=== PATIENT | male | born 2000 | race Hispanic/Latino ===

== ENCOUNTER 2023-05-17 20:42 | Emergency (ER) | payer BC, SELFPAY ==
--- NOTE | ~2023-05-17 | XR_ITS ---
EXAMINATION: XR chest 1V portable Exam Date/Time: 05/17/2023 21:10 CDT HISTORY: Syncope AT WORK THIS EVENING Comparison: None. RESULT: Lines, tubes, and devices: None. Lungs and pleura: Streaky bibasilar opacities, greater in the left lung base, otherwise clear. Cardiomediastinal silhouette: Normal. Other: No acute osseous or upper abdominal finding. IMPRESSION: Streaky bibasilar atelectasis. Aspiration, particularly in the left lower lobe, could also be conside red, depending on the clinical context. Reviewed, dictated and finalized at location K. IMPRESSION: Streaky bibasilar atelectasis. Aspiration, particularly in the left lower lobe, could also be considered, depending on the clinical context.
[2023-05-17 20:42] VITALS: BP 119/84; PULSE 95; RESP 14; TEMP 36.8; O2SAT 100
--- NOTE | 2023-05-17 20:57 | ECG_ITS ---
Measurements Intervals [place] Rate: 88 P: 51 PA: 140 QRS: 42 QRSD: 91 T: 33 QT: 323 QTc: 392 Interpretive Statements SINUS RHYTHM WITH SINUS ARRHYTHMIA POSSIBLE RIGHT VENTRICULAR CONDUCTION DELAY [RSR (QR) IN V1/V2] BORDERLINE ECG NO PREVIOUS ECG AVAILABLE FOR COMPARISON Electronically Signed On 05-18-2023 9:16:28 CDT by Joseph Joseph M.D.
[2023-05-17] MEDS: SODIUM CHLORIDE 0.9% IV 1,000 ML 999 ML IV CONT (21:42)
[2023-05-17 21:54] LABS: Basophils Absolute Auto 0.1 K/mm3 (0.0-0.1); Basophils Percent Auto 0.4 % (0.2-1.2); Eosinophils Absolute Auto 0.1 K/mm3 (0-0.3); Eosinophils Percent Auto 0.7 % (0-4.4); Hematocrit 46.6 % (42.0-52.0); Hemoglobin 15.9 g/dL (14.0-18.0); Immature Granulocyte Absolute 0.06 K/mm3 (0.00-0.031); Immature Granulocyte Percent A 0.4 % (0-0.5); Lymphocytes Absolute Auto 2.77 K/mm3 (0.9-3.2); Lymphocytes Percent Auto 20.6 % (18.3-44.2); Mean Corpuscular HGB Conc 34.1 g/dl (32-36); Mean Corpuscular Hemoglobin 31.2 pg (26-34); Mean Corpuscular Volume 91.6 fl (80-100); Mean Platelet Volume 10.7 fl (7.4-10.4); Monocytes Absolute Auto 1.2 K/mm3 (0.1-0.6); Monocytes Percent Auto 9.1 % (2.6-8.5); Neutrophils Absolute Auto 9.3 K/mm3 (1.3-6.7); Neutrophils Percent Auto 68.8 % (45.5-73.1); Platelet Count Result 221 k/mm3 (150-375); Red Blood Count 5.09 M/mm3 (4.6-6.20); White Blood Count 13.5 K/mm3 (4.5-10.0)
[2023-05-17 22:02] LABS: Lactic Acid Reflex 1.7 mmol/L (0.7-2.0)
[2023-05-17 22:08] LABS: Alanine Aminotransferase 34 U/L (6-50); Albumin Level 4.8 g/dL (3.5-5.1); Alkaline Phosphatase 92 U/L (38-126); Anion Gap 12 mmol/L (8-16); Aspartate Amino Transferase 37 U/L (17-59); Bilirubin,Total 0.6 mg/dL (0.2-1.3); Blood Urea Nitrogen 11 mg/dL (9-20); Calcium 9.3 mg/dL (8.4-10.2); Carbon Dioxide 24 mmol/L (22-30); Chloride 103 mmol/L (98-107); Estimated CRCL calculation 118 ml/min; Estimated Glomerular Filt Rate > 60; Glucose 94 mg/dL (65-110); Magnesium 2.4 mg/dL (1.6-2.3); Potassium 3.8 mmol/L (3.4-5.0); Sodium 139 mmol/L (137-145)
--- NOTE | 2023-05-17 22:11 | ED.GENADULT ---
HPI - General Adult General Chief complaint: Syncope Stated complaint: COLLAPSED AT WORK Time Seen by Provider: 05/17/23 20:50 History of Present Illness HPI narrative: Patient 23-year-old gentleman who presents the emergency department with chief complaint of syncopal episode. The patient reports that he has been sick for several days and today decided to go back to work he reports that they moved him to an area that is more physically active than normal and then was sitting down to eat lunch and started to feel lightheaded and then briefly passed out the patient reports that he was aware of everything going on but just did not feel strong enough to be able to interact with individuals. The patient reports currently he has no pain reports that he has had a little bit of a sore throat and just felt generally weak. Related Data Allergies Allergy/AdvReac Type Severity Reaction Status Date / Time No Known Allergies Allergy Verified 05/17/23 23:16 Review of Systems Review of Systems: A 10 system review of systems was completed on the patient and is negative except for what is stated in the HPI. Nursing and ancillary documentation was reviewed. Exam Narrative: GENERAL: Well-appearing, well-nourished, and in no acute distress. HEAD: Normocephalic, atraumatic. EYES: PERRLA and EOMI. ENT: Nares clear, no rhinorrhea or epistaxis. Mucous membranes moist. NECK: Supple. CHEST: Clear to auscultation. No respiratory distress. HEART: Regular rate and rhythm. No murmur heard. Normal peripheral pulses. ABDOMEN: Soft, nontender, nondistended, normal active bowel sounds. EXTREMITIES: Normal range of motion. No edema. SKIN: Warm, dry, no rash. NEURO: No focal deficits. Alert and oriented x3. PSYCH: Normal mood and affect. Course Vital Signs Vital signs: Vital Signs Temperature 36.8 C 05/17/23 20:42 Pulse Rate 95 05/17/23 20:42 Respiratory Rate 14 05/17/23 20:42 Blood Pressure 119/84 05/17/23 20:42 Pulse Oximetry 100 05/17/23 20:42 Temperature 36.8 C 05/17/23 20:42 Pulse Rate 90 05/17/23 23:13 Respiratory Rate 15 05/17/23 22:53 Blood Pressure 109/76 05/17/23 23:13 Pulse Oximetry 100 05/17/23 22:53 Medical Decision Making [facility] Narrative Medical decision making narrative: Differential diagnosis includes electrolyte abnormality, dehydration, viral syndrome Laboratory studies were obtained which were within normal limits CBC was within normal limits electrolytes are within normal his magnesium was 2.4 urinalysis showed no evidence of UTI the patient is negative for COVID flu and strep chest x-ray showed no focal infiltrate EKG showed no dysrhythmia Vital Signs Vital Signs: Vital Signs Temperature 36.8 C 05/17/23 20:42 Pulse Rate 95 05/17/23 20:42 Respiratory Rate 14 05/17/23 20:42 Blood Pressure 119/84 05/17/23 20:42 Pulse Oximetry 100 05/17/23 20:42 Temperature 36.8 C 05/17/23 20:42 Pulse Rate 90 05/17/23 23:13 Respiratory Rate 15 05/17/23 22:53 Blood Pressure 109/76 05/17/23 23:13 Pulse Oximetry 100 05/17/23 22:53 Lab Data 05/17/23 21:41 05/17/23 21:41 Labs: Lab Results 05/17/23 05/17/23 Range/Units 21:41 21:42 WBC 13.5 H (4.5-10.0) K/mm3 RBC 5.09 (4.6-6.20) M/mm3 Hgb 15.9 (14.0-18.0) g/dL Hct 46.6 (42.0-52.0) % MCV 91.6 (80-100) fl MCH 31.2 (26-34) pg MCHC 34.1 (32-36) g/dl RDW 13.0 (11.5-14.5) % Plt Count 221 (150-375) k/mm3 MPV 10.7 H (7.4-10.4) fl Immature Gran % (Auto) 0.4 (0-0.5) % Neut % (Auto) 68.8 (45.5-73.1) % Lymph % (Auto) 20.6 (18.3-44.2) % Eddy % (Auto) 9.1 H (2.6-8.5) % Eos % (Auto) 0.7 (0-4.4) % Baso % (Auto) 0.4 (0.2-1.2) % Lymph # (Auto) 2.77 (0.9-3.2) K/mm3 Eddy # (Auto) 1.2 H (0.1-0.6) K/mm3 Eos # (Auto) 0.1 (0-0.3) K/mm3 Baso # (Auto) 0.1 (0.0-0.1) K/mm3 Abs Immat Gran (auto) 0.06
[2023-05-17 22:20] LABS: Strep Group A RT-PCR NOT DETECTED (Negative)
[2023-05-17 22:31] LABS: Influenza A QL RT-PCR Negative (Negative); Influenza B QL RT-PCR Negative (Negative); SARS-CoV-2 RNA PCR Negative (Negative)
[2023-05-17 22:53] VITALS: BP 104/71; PULSE 86; RESP 15; O2SAT 100
[2023-05-17 23:10] VITALS: BP 105/60; PULSE 92
[2023-05-17 23:11] VITALS: BP 105/62; PULSE 87
[2023-05-17 23:13] VITALS: BP 109/76; PULSE 90
[2023-05-17 23:22] LABS: Appearance Urine Clear (Clear); Bilirubin Urine Negative (Negative); Blood Urine Negative (Negative); Color Urine Yellow (Yellow); Glucose Urine UA Negative (Negative); Ketones Urine Negative (Negative); Leukocyte Esterase Ur Negative LEU/UL (Negative); Nitrate Urine Negative (Negative); Protein Urine Negative (Negative); Specific Grav Ur 1.016 (1.001-1.035); Urobilinogen Urine 0.2 mg/dL (<2.0)
[2023-05-17 23:32] LABS: Add Urine Microscopic? NO
[2023-05-18 00:43] VITALS: BP 97/56; PULSE 88; RESP 15; O2SAT 98
== END 2023-05-18 00:45 | disposition home or self-care (01) ==
PROVIDERS: Emergency Provider Emergency Medicine
DX: R55 Syncope and collapse (principal); Z20.822 Contact with and (suspected) exposure to COVID-19; R94.31 Abnormal electrocardiogram [ECG] [EKG]
CPT/HCPCS: 36415; 71045; 80053; 81003; 83605; 83735; 85025; 87636; 87651; 93005; 96360; 99283; J7030